=== PATIENT | female | born 1965 | race Caucasian/White ===

== ENCOUNTER 2017-12-20 16:42 | Emergency (ER) | payer SELFPAY | END 2017-12-20 18:40 | disposition left against medical advice (07) | LOC: FTE 16:42 | DX: Z53.21 Procedure and treatment not carried out due to patient leaving prior to being seen by health care provider (principal) ==

== ENCOUNTER 2019-05-28 06:23 | Day surgery (SDC) | payer OTHER ==
[2019-05-28] MEDS ORDERED: FENTAnyl 50 MCG/ML VIAL (08:54)
[2019-05-28] MEDS ORDERED: MIDAZOLAM 1 MG/ML 2 ML INJ ×3 (08:54→08:55)
== END 2019-05-28 13:51 | disposition home or self-care (01) ==
LOC: GIL 06:23
DX: K64.8 Other hemorrhoids (principal); K44.9 Diaphragmatic hernia without obstruction or gangrene; K21.9 Gastro-esophageal reflux disease without esophagitis; K29.60 Other gastritis without bleeding
CPT/HCPCS: 43239; 88305; 88312